=== PATIENT | female | born 1960 | race Caucasian/White ===

== ENCOUNTER → 2021-12-02 09:52 | Outpatient (BNVA) | payer MEDICAID, SELFPAY | PROVIDERS: Family Provider Family Medicine; Visit Provider Internal Medicine | DX: R76.8 Other specified abnormal immunological findings in serum (principal); M25.50 Pain in unspecified joint; R53.83 Other fatigue; Z11.59 Encounter for screening for other viral diseases; Z87.891 Personal history of nicotine dependence | CPT/HCPCS: 99204 ==

== ENCOUNTER 2021-12-02 12:22 | Outpatient (CLI) | payer MEDICAID, SELFPAY ==
--- NOTE | 2021-12-02 12:51 | XR_ITS ---
WS: [id number] SACROILIAC JOINTS TECHNIQUE: AP and oblique imaging is submitted. HISTORY: L40.9 - Psoriasis, unspecified COMPARISON: None available. Mild osteopenia. Mild narrowing of the SI joints. No significant erosions are identified. No sclerosi s. Long segment arterial stents are noted in the iliac arteries bilaterally. XR/XR sacroiliac jts m 3V [id number] IMPRESSION: 1. No sclerosis or fusion or erosions at the SI joints. 2. Mild osteopenia.
--- NOTE | 2021-12-02 12:51 | XR_ITS ---
WS: [id number] LEFT HAND: 2 VIEW(S) TECHNIQUE: PA and lateral. HISTORY: R76.8 - Other specified abnormal immunological findings. COMPARISON: None available. No acute fracture or dislocation. Very minimal narrowing of the interphalangeal joints. No periostitis. No erosions. No fusion. XR/XR hand LT 2V [id number] IMPRESSION: Very minimal narrowing of the interphalangeal joints.
--- NOTE | 2021-12-02 12:51 | XR_ITS ---
WS: [id number] RIGHT HAND: 2 VIEW(S) TECHNIQUE: PA and lateral. HISTORY: R76.8 - Other specified abnormal immunological findings. COMPARISON: None available. No acute fracture or dislocation. Very minimal narrowing of the interphalangeal joints. 3 mm sclerotic focus middle phalanx of the thir d finger is probably a bone island. No cortical destruction. No erosions. XR/XR hand RT 2V [id number] IMPRESSION: Very minimal interphalangeal joint space narrowing.
[2021-12-02 14:05] LABS: Erythrocyte Sedimentation Rate 11 mm/hr (0-15)
[2021-12-02 14:37] LABS: 25 Hydroxy Vitamin D 36 ng/mL (30-100); C Reactive Protein 4.9 mg/L (0.0-4.9); Creatine Phosphokinase 66 U/L (26-192); Vitamin B12 561 pg/mL (232-1245)
[2021-12-02 14:41] LABS: Cortisol Random 2.61 ug/dL (2.47-19.5); Hepatitis B Core AB, Total Non-Reactive (Nonreactive); Hepatitis B Surface Antigen Non-Reactive (Nonreactive); Hepatitis C Virus Antibody Non-Reactive (Nonreactive)
[2021-12-03 12:12] LABS: Cyclic Citrullinated Peptide <16 UNITS
[2021-12-03 14:07] LABS: CENTROMERE B ANTIBODY <1.0 NEG AI (<1.0 NEG); JO-1 ANTIBODY <1.0 NEG AI (<1.0 NEG); RNP ANTIBODY 2.2 POS AI (<1.0 NEG); SCL-70 ANTIBODY <1.0 NEG AI (<1.0 NEG); SJOGREN'S ANTIBODY (SS-A) <1.0 NEG AI (<1.0 NEG); SM ANTIBODY <1.0 NEG AI (<1.0 NEG); SS-B <1.0 NEG AI (<1.0 NEG)
[2021-12-03 14:37] LABS: COMPLEMENT COMPONENT C3C 157 mg/dL (83-193); COMPLEMENT COMPONENT C4C 31 mg/dL (15-57)
[2021-12-03 15:31] LABS: THYROID PEROXIDASE ANTIBODIES <1 IU/mL (<9)
[2021-12-03 16:38] LABS: ANA SCREEN, IFA NEGATIVE (NEGATIVE)
[2021-12-04 12:07] LABS: COMPLEMENT, TOTAL (CH50) >60 U/mL (31-60)
[2021-12-07 12:03] LABS: DNA AB (DS) CRITHIDIA,IFA NEGATIVE (NEGATIVE)
== END 2021-12-02 12:23 | disposition home or self-care (01) ==
PROVIDERS: Visit Provider Internal Medicine
DX: L40.9 Psoriasis, unspecified (principal); M25.50 Pain in unspecified joint; R53.83 Other fatigue; R76.8 Other specified abnormal immunological findings in serum; Z11.59 Encounter for screening for other viral diseases
CPT/HCPCS: 72202; 73120; 82306; 82533; 82550; 82607; 83516; 85651; 86140; 86160; 86162; 86200; 86235; 86255; 86376; 86431; 86704; 86803; 87340

== ENCOUNTER → 2022-01-07 13:56 | Outpatient (BNVA) | payer MEDICAID, SELFPAY | PROVIDERS: Visit Provider Internal Medicine | DX: R76.8 Other specified abnormal immunological findings in serum (principal); M25.50 Pain in unspecified joint; R53.83 Other fatigue; Z79.899 Other long term (current) drug therapy; Z87.891 Personal history of nicotine dependence | CPT/HCPCS: 99214 ==

== ENCOUNTER 2022-04-09 11:41 | Outpatient (CLI) | payer MEDICAID, SELFPAY ==
[2022-04-09 12:10] LABS: Erythrocyte Sedimentation Rate 2 mm/hr (0-15)
[2022-04-09 12:12] LABS: Basophils # 0.1 10^3/uL (0.0-0.1); Basophils % 0.8 %; Eosinophils % 0.5 %; Hematocrit 39.1 % (37.0-47.0); Hemoglobin 12.5 g/dL (11.5-15.3); Lymphocytes # 2.4 10^3/uL (0.8-4.8); Lymphocytes % 31.4 %; Mean Corpuscular Hemoglobin 29.6 pg (28.0-34.0); Mean Corpuscular Volume 92.4 fl (81-99); Mean Platelet Volume 10.1 fL (7.4-10.4); Monocytes # 0.5 10^3/uL (0.2-0.9); Neutrophils # 4.55 10^3/uL (1.8-7.7); Neutrophils % 60.9 %; Nucleated Red Blood Cells % 0 %; Platelet Count 247 10^3/cmm (130-400); Red Blood Count 4.23 10^6/uL (4.1-5.3); Red Cell Distribution Width 12.6 % (12.1-15.1); White Blood Count 7.5 10^3/uL (4.0-10.0)
[2022-04-09 12:41] LABS: Alanine Aminotransferase 11 U/L (0-33); Albumin Level 4.1 g/dL (3.5-5.2); Alkaline Phosphatase 95 IU/L (35-105); Aspartate Amino Transferase 14 U/L (0-32); Blood Urea Nitrogen 10 mg/dL (8-23); Calcium 9.1 mg/dL (8.5-10.5); Carbon Dioxide 23 mmol/L (22-29); Chloride 103 mmol/L (98-107); Globulin 2.9 g/dL (1.3-4.6); Glomerular Filtration Rate 63.7 mL/min (90-130); Glucose 112 mg/dL (65-115); Osmolality Calculated 284 mOsm/kg (285-295); Sodium 137 mmol/L (136-145); Total Bilirubin 0.2 mg/dL (0.15-1.2)
[2022-04-09 12:43] LABS: Anion Gap 15.2 (5-19); Potassium 4.2 mmol/L (3.5-5.1)
== END 2022-04-09 11:42 | disposition home or self-care (01) ==
LOC: LAB 11:49
PROVIDERS: PCP Surgery; Visit Provider Internal Medicine
DX: M25.50 Pain in unspecified joint (principal); R53.83 Other fatigue; R76.8 Other specified abnormal immunological findings in serum; Z79.899 Other long term (current) drug therapy
CPT/HCPCS: 80053; 85025; 85651; 86140

== ENCOUNTER → 2022-04-14 12:41 | Outpatient (BNVA) | payer MEDICAID, SELFPAY | PROVIDERS: PCP Surgery; Visit Provider Internal Medicine | DX: R76.8 Other specified abnormal immunological findings in serum (principal); M54.50 Low back pain, unspecified; M25.50 Pain in unspecified joint; R53.83 Other fatigue; I73.9 Peripheral vascular disease, unspecified | CPT/HCPCS: 99213; 99214 ==